=== PATIENT | female | born 1975 | race Caucasian/White ===

== ENCOUNTER 2021-08-22 18:41 | Inpatient (IN) ==
[2021-08-22] MEDS: Apixaban 5 MG TABLET PO SCH (22:44)
[2021-08-22] MEDS: Famotidine 20 MG TABLET PO SCH (22:45)
[2021-08-22] MEDS: clonazePAM 1 MG TABLET PO PRN (22:46)
[2021-08-22] MEDS: Pregabalin 75 MG CAPSULE PO SCH (22:47)
[2021-08-22] MEDS: traZODone 50 MG TABLET PO SCH (22:49)
[2021-08-22] MEDS: QUEtiapine Fumarate 100 MG TABLET PO SCH (23:03)
[2021-08-23 05:11] LABS: Basophils # 0.1 K/mcL (0.0-0.2); Basophils % 0.9 %; Eosinophils # 0.3 K/mcL (0.0-0.6); Hematocrit 39.3 % (35.3-44.9); Immature Granulocytes % 0.4 % (0-4); Lymphocytes # 1.6 K/mcL (0.6-4.6); Lymphocytes % 29.7 %; Mean Corpuscular HGB Conc 31.6 g/dL (31.6-35.5); Mean Corpuscular Hemoglobin 28.8 pg (28.0-33.3); Mean Corpuscular Volume 91.4 fL (83.0-100.0); Mean Platelet Volume 11.5 fL (9.4-12.4); Monocytes # 0.6 K/mcL (0.0-1.3); Neutrophils # 2.9 K/mcL (1.6-8.9); Platelet Count 225 K/mcL (140-400); Red Cell Distribution Width 13.7 % (11.5-14.5); White Blood Count 5.5 K/mcL (4.3-11.1)
[2021-08-23 05:18] LABS: Calcium 9.1 mg/dL (8.6-10.3); Potassium 4.2 mEq/L (3.5-5.1)
[2021-08-23 05:19] LABS: Hemoglobin 12.4 g/dL (11.5-15.4)
[2021-08-23] MEDS: BuPROPion XL (24 HR) 150 MG TABLET PO SCH (08:14)
[2021-08-23] MEDS: FLUoxetine 20 MG CAPSULE PO SCH (08:15)
[2021-08-23] MEDS: Pregabalin 75 MG CAPSULE PO SCH ×2 (08:15→21:25)
[2021-08-23] MEDS: Apixaban 5 MG TABLET PO SCH ×2 (08:15→21:25)
[2021-08-23] MEDS: clonazePAM 1 MG TABLET PO PRN ×2 (08:15→21:26)
[2021-08-23] MEDS ORDERED: Lactulose Oral Soln 20 GM/30 ML UDC PO PRN (13:10)
[2021-08-23] MEDS ORDERED: Bisacodyl 10 MG RECTAL SUPPOSITORY RC PRN (13:10)
[2021-08-23] MEDS: polyethylene glycoL 3350 17 GM POWD.PACK PO SCH (14:43)
[2021-08-23] MEDS: Sennosides/Docusate Sodium TABLET PO SCH ×2 (14:48→21:26)
[2021-08-23] MEDS ORDERED: Ipratropium/Albuterol Neb 3 ML IH PRN (18:04)
[2021-08-23] MEDS: QUEtiapine Fumarate 100 MG TABLET PO SCH (21:25)
[2021-08-23] MEDS: traZODone 50 MG TABLET PO SCH (21:25)
[2021-08-23] MEDS: Famotidine 20 MG TABLET PO SCH (21:25)
[2021-08-23] MEDS: Acetaminophen 325 MG TABLET PO PRN (21:26)
[2021-08-24] MEDS: Sennosides/Docusate Sodium TABLET PO SCH ×2 (08:19→21:42)
[2021-08-24] MEDS: BuPROPion XL (24 HR) 150 MG TABLET PO SCH (08:19)
[2021-08-24] MEDS: polyethylene glycoL 3350 17 GM POWD.PACK PO SCH (08:19)
[2021-08-24] MEDS: Pregabalin 75 MG CAPSULE PO SCH ×2 (08:20→21:41)
[2021-08-24] MEDS: FLUoxetine 20 MG CAPSULE PO SCH (08:20)
[2021-08-24] MEDS: clonazePAM 1 MG TABLET PO PRN (08:20)
[2021-08-24] MEDS: Apixaban 5 MG TABLET PO SCH ×2 (08:20→21:42)
[2021-08-24] MEDS: Nicotine 14 MG PATCH.TD24 TD SCH (10:54)
[2021-08-24 13:55] LABS: Adenovirus Not Detected (Not Detect); Bordetella Pertussis Not Detected (Not Detect); Chlamydophila pneumoniae Not Detected (Not Detect); Coronavirus 229E Not Detected (Not Detect); Coronavirus HKU1 Not Detected (Not Detect); Coronavirus NL63 Not Detected (Not Detect); Coronavirus OC43 Not Detected (Not Detect); Human Metapneumovirus DETECTED (Not Detect); Human Rhinovirus/Enterovirus Not Detected (Not Detect); Influenza A Subtype 2009 H1 Not Detected (Not Detect); Influenza B Not Detected (Not Detect); Mycoplasma pneumoniae Not Detected (Not Detect); Parainfluenza Virus 1 Not Detected (Not Detect); Parainfluenza Virus 2 Not Detected (Not Detect); Parainfluenza Virus 3 Not Detected (Not Detect); Parainfluenza Virus 4 Not Detected (Not Detect); Respiratory Syncytial Virus Not Detected (Not Detect); SARS-CoV-2 Not Detected (Not Detect)
[2021-08-24] MEDS: Famotidine 20 MG TABLET PO SCH (21:42)
[2021-08-24] MEDS: traZODone 50 MG TABLET PO SCH (21:43)
[2021-08-24] MEDS: QUEtiapine Fumarate 100 MG TABLET PO SCH (21:43)
[2021-08-25] MEDS: polyethylene glycoL 3350 17 GM POWD.PACK PO SCH (07:59)
[2021-08-25] MEDS: Apixaban 5 MG TABLET PO SCH ×2 (07:59→20:03)
[2021-08-25] MEDS: Pregabalin 75 MG CAPSULE PO SCH ×2 (07:59→20:03)
[2021-08-25] MEDS: FLUoxetine 20 MG CAPSULE PO SCH (07:59)
[2021-08-25] MEDS: Nicotine 14 MG PATCH.TD24 TD SCH (08:00)
[2021-08-25] MEDS: Sennosides/Docusate Sodium TABLET PO SCH ×2 (08:00→20:03)
[2021-08-25] MEDS: BuPROPion XL (24 HR) 150 MG TABLET PO SCH (08:00)
[2021-08-25] MEDS: QUEtiapine Fumarate 100 MG TABLET PO SCH (20:03)
[2021-08-25] MEDS: traZODone 50 MG TABLET PO SCH (20:03)
[2021-08-25] MEDS: Acetaminophen 325 MG TABLET PO PRN (20:03)
[2021-08-25] MEDS: Famotidine 20 MG TABLET PO SCH (20:04)
[2021-08-26] MEDS: Nicotine 14 MG PATCH.TD24 TD SCH (09:11)
[2021-08-26] MEDS: BuPROPion XL (24 HR) 150 MG TABLET PO SCH (09:11)
[2021-08-26] MEDS: Apixaban 5 MG TABLET PO SCH ×2 (09:11→20:36)
[2021-08-26] MEDS: polyethylene glycoL 3350 17 GM POWD.PACK PO SCH (09:11)
[2021-08-26] MEDS: Sennosides/Docusate Sodium TABLET PO SCH ×2 (09:11→20:34)
[2021-08-26] MEDS: Pregabalin 75 MG CAPSULE PO SCH ×2 (09:11→20:35)
[2021-08-26] MEDS: FLUoxetine 20 MG CAPSULE PO SCH (09:11)
[2021-08-26] MEDS: traZODone 50 MG TABLET PO SCH (20:33)
[2021-08-26] MEDS: QUEtiapine Fumarate 100 MG TABLET PO SCH (20:34)
[2021-08-26] MEDS: Famotidine 20 MG TABLET PO SCH (20:35)
[2021-08-26] MEDS: Acetaminophen 325 MG TABLET PO PRN (20:37)
[2021-08-27] MEDS: polyethylene glycoL 3350 17 GM POWD.PACK PO SCH (07:38)
[2021-08-27] MEDS: Sennosides/Docusate Sodium TABLET PO SCH ×2 (07:39→20:23)
[2021-08-27] MEDS: Acetaminophen 325 MG TABLET PO PRN (07:39)
[2021-08-27] MEDS: FLUoxetine 20 MG CAPSULE PO SCH (07:39)
[2021-08-27] MEDS: Apixaban 5 MG TABLET PO SCH ×2 (07:40→20:23)
[2021-08-27] MEDS: Pregabalin 75 MG CAPSULE PO SCH ×2 (07:40→20:22)
[2021-08-27] MEDS: BuPROPion XL (24 HR) 150 MG TABLET PO SCH (07:40)
[2021-08-27] MEDS: Nicotine 14 MG PATCH.TD24 TD SCH (09:49)
[2021-08-27] MEDS: traZODone 50 MG TABLET PO SCH (20:22)
[2021-08-27] MEDS: Famotidine 20 MG TABLET PO SCH (20:24)
[2021-08-27] MEDS: QUEtiapine Fumarate 100 MG TABLET PO SCH (20:24)
[2021-08-28] MEDS: polyethylene glycoL 3350 17 GM POWD.PACK PO SCH (08:47)
[2021-08-28] MEDS: Sennosides/Docusate Sodium TABLET PO SCH ×2 (08:47→20:25)
[2021-08-28] MEDS: Apixaban 5 MG TABLET PO SCH ×2 (08:47→20:25)
[2021-08-28] MEDS: FLUoxetine 20 MG CAPSULE PO SCH (08:48)
[2021-08-28] MEDS: BuPROPion XL (24 HR) 150 MG TABLET PO SCH (08:48)
[2021-08-28] MEDS: Pregabalin 75 MG CAPSULE PO SCH ×2 (08:48→20:25)
[2021-08-28] MEDS: Nicotine 14 MG PATCH.TD24 TD SCH (08:48)
[2021-08-28] MEDS: Famotidine 20 MG TABLET PO SCH (20:24)
[2021-08-28] MEDS: traZODone 50 MG TABLET PO SCH (20:26)
[2021-08-28] MEDS: QUEtiapine Fumarate 100 MG TABLET PO SCH (20:26)
[2021-08-28] MEDS: clonazePAM 1 MG TABLET PO PRN (20:30)
[2021-08-29] MEDS: polyethylene glycoL 3350 17 GM POWD.PACK PO SCH (08:10)
[2021-08-29] MEDS: Nicotine 14 MG PATCH.TD24 TD SCH (08:10)
[2021-08-29] MEDS: Sennosides/Docusate Sodium TABLET PO SCH ×2 (08:11→21:12)
[2021-08-29] MEDS: Pregabalin 75 MG CAPSULE PO SCH ×2 (08:11→21:12)
[2021-08-29] MEDS: FLUoxetine 20 MG CAPSULE PO SCH (08:11)
[2021-08-29] MEDS: Apixaban 5 MG TABLET PO SCH ×2 (08:11→21:12)
[2021-08-29] MEDS: BuPROPion XL (24 HR) 150 MG TABLET PO SCH (08:11)
[2021-08-29 19:00] VITALS: RESP 16; TEMP 97.8
[2021-08-29] MEDS: traZODone 50 MG TABLET PO SCH (21:12)
[2021-08-29] MEDS: QUEtiapine Fumarate 100 MG TABLET PO SCH (21:12)
[2021-08-29] MEDS: Famotidine 20 MG TABLET PO SCH (21:12)
[2021-08-29] MEDS: clonazePAM 1 MG TABLET PO PRN (21:13)
[2021-08-30 07:25] VITALS: BP 133/79; PULSE 61; O2SAT 98
[2021-08-30] MEDS: Nicotine 14 MG PATCH.TD24 TD SCH (09:03)
[2021-08-30] MEDS: Pregabalin 75 MG CAPSULE PO SCH (09:04)
[2021-08-30] MEDS: FLUoxetine 20 MG CAPSULE PO SCH (09:04)
[2021-08-30] MEDS: Apixaban 5 MG TABLET PO SCH (09:04)
[2021-08-30] MEDS: clonazePAM 1 MG TABLET PO PRN (09:04)
[2021-08-30] MEDS: BuPROPion XL (24 HR) 150 MG TABLET PO SCH (09:04)
[2021-08-30] MEDS: Sennosides/Docusate Sodium TABLET PO SCH (09:05)
[2021-08-30] MEDS: polyethylene glycoL 3350 17 GM POWD.PACK PO SCH (09:05)
== END 2021-08-30 16:22 | disposition home or self-care (01) | DRG 556 ==
LOC: INPGRE 18:51
PROVIDERS: ADMIT Family Medicine; ATTEND Family Medicine